=== PATIENT | female | born 1955 | race African-American/Black ===

== ENCOUNTER → 2022-09-14 | Day surgery (SDC) | payer MEDICARE ==
[~2022-09-14] MED LIST: AMLO10TA80 PO; ASPI-1497 PO; ATOR10TA69 PO; CARV3.1242 PO; CINA30 PO; FERR325T30 PO; GLIP10TA10 PO; LIDOCAINE HCL 1% 10 MG/ML 10ML VIAL ONE; METF-873 PO; SODIUM BICARBONATE 4% (2.4MEQ) 5ML VIAL IV ONE; TOPUD PO; VIT1TABL62 PO
== END | disposition home or self-care (01) ==
LOC: RAD 07:56
PROVIDERS: ATTEND Specialist
DX: R92.8 Other abnormal and inconclusive findings on diagnostic imaging of breast (principal); Z79.82 Long term (current) use of aspirin; Z79.84 Long term (current) use of oral hypoglycemic drugs; Z79.899 Other long term (current) drug therapy; Z98.890 Other specified postprocedural states
CPT/HCPCS: 19285; J3490 ×2; Z7610 ×2; A4648

== ENCOUNTER 2022-09-15 07:59 | Day surgery (SDC) | payer MEDICARE ==
[~2022-09-15] VITALS: Ht 170.2 cm; Wt 72.6 kg
[~2022-09-15 07:59] MED LIST changes: -AMLO10TA80 PO; -ASPI-1497 PO; -ATOR10TA69 PO; +BUPIVACAINE HCL/PF 0.5% (5MG/ML) 10ML ONE; -CARV3.1242 PO; -CINA30 PO; -FERR325T30 PO; -GLIP10TA10 PO; -METF-873 PO; +POLYMYXIN B SULFATE 500000 UNITS/VIAL ONE; +SKIN ADHESIVE 0.7 GM EA TOP ONE; -SODIUM BICARBONATE 4% (2.4MEQ) 5ML VIAL IV ONE; -TOPUD PO; -VIT1TABL62 PO
[2022-09-15] MEDS ORDERED: LACTATED RINGERS 1,000 ML IV ONE (08:30)
[2022-09-15] MEDS ORDERED: PROPOFOL 200MG/20ML VIAL IV ONE (08:43)
[2022-09-15] MEDS ORDERED: FENTANYL CITRATE/PF 50MCG/ML 2ML VIAL ONE ×2 (08:43→10:35)
[2022-09-15] MEDS ORDERED: DEXAMETHASONE 4MG/ML 1ML VIAL ONE (08:43)
[2022-09-15] MEDS ORDERED: ONDANSETRON HCL 4MG/2ML INJ ONE (08:43)
[2022-09-15] MEDS ORDERED: KETOROLAC 30MG/ML VIAL ONE (08:43)
[2022-09-15] MEDS ORDERED: MIDAZOLAM HCL 2 MG/2 ML VIAL ONE (08:43)
[2022-09-15] MEDS ORDERED: CARV3.1242 PO (10:00)
[2022-09-15] MEDS ORDERED: METF-873 PO (10:00)
[2022-09-15] MEDS ORDERED: ATOR10TA69 PO (10:00)
[2022-09-15] MEDS ORDERED: GLIP10TA10 PO (10:00)
[2022-09-15] MEDS ORDERED: AMLO10TA80 PO (10:00)
[2022-09-15] MEDS ORDERED: VIT1TABL62 PO (10:00)
[2022-09-15] MEDS ORDERED: CINA30 PO (10:00)
[2022-09-15] MEDS ORDERED: TOPUD PO (10:00)
[2022-09-15] MEDS ORDERED: FERR325T30 PO (10:00)
[2022-09-15] MEDS ORDERED: ASPI-1497 PO (10:00)
[2022-09-15] MEDS ORDERED: EPHEDRINE SULFATE 50MG/ML VIAL ONE (10:25)
[2022-09-15] MEDS ORDERED: MEPERIDINE HCL/PF 25MG/ML CPJ IV PRN (11:00)
[2022-09-15] MEDS ORDERED: HYDROMORPHONE HCL/PF 2MG/ML CPJ IV PRN (11:00)
[2022-09-15] MEDS ORDERED: FENTANYL CITRATE/PF 50MCG/ML 2ML VIAL IV PRN (11:00)
[2022-09-15] MEDS ORDERED: ONDANSETRON HCL 4MG/2ML INJ IV PRN (11:00)
[2022-09-15] MEDS ORDERED: TRAMADOL 50MG TABLET PO PRN (13:30)
[2022-09-15 13:43] VITALS: BP 138/88; PULSE 94; RESP 12
== END 2022-09-15 14:30 | disposition home or self-care (01) ==
LOC: OR 07:59
PROVIDERS: ATTEND Specialist
DX: N63.20 Unspecified lump in the left breast, unspecified quadrant (principal); R92.8 Other abnormal and inconclusive findings on diagnostic imaging of breast; I10 Essential (primary) hypertension; E11.9 Type 2 diabetes mellitus without complications; E78.5 Hyperlipidemia, unspecified; Z79.84 Long term (current) use of oral hypoglycemic drugs; Z79.899 Other long term (current) drug therapy; Z98.890 Other specified postprocedural states
CPT/HCPCS: 19301; 82962; 88307; 76098; 19285; J3010; J3490 ×4; J1100; J1885; J2250; J2405; J2704; A4217; Z7610 ×17

== ENCOUNTER → 2022-11-17 | Day surgery (SDC) | payer MEDICARE ==
[~2022-11-17] VITALS: Ht 170.2 cm; Wt 73.5 kg
[~2022-11-17] MED LIST changes: +AMLO10TA80 PO; +ASPI-1497 PO; +ATOR10TA69 PO; +CARV3.1242 PO; +CARV6.2548 PO; +CINA30 PO; +ERGO1250 PO; +FERR325T30 PO; +GLIP10TA10 PO; -LIDOCAINE HCL 1% 10 MG/ML 10ML VIAL ONE; +LIDOCAINE HCL 1% 20ML VIAL (Pyxis) INJ ONE; +METF-873 PO; +METHYLENE BLUE 50 MG/10 ML AMP IV ONE; -POLYMYXIN B SULFATE 500000 UNITS/VIAL ONE; -SKIN ADHESIVE 0.7 GM EA TOP ONE; +SODIUM CHLORIDE 0.9% 1,000 ML IV SCH; +TOPUD PO; +VIT1TABL62 PO
== END | disposition home or self-care (01) ==
LOC: OR 06:27
PROVIDERS: ATTEND Specialist
DX: C50.912 Malignant neoplasm of unspecified site of left female breast (principal); R59.0 Localized enlarged lymph nodes; I11.9 Hypertensive heart disease without heart failure; E11.9 Type 2 diabetes mellitus without complications; Z79.82 Long term (current) use of aspirin; Z79.84 Long term (current) use of oral hypoglycemic drugs; Z79.899 Other long term (current) drug therapy; Z98.890 Other specified postprocedural states
CPT/HCPCS: 36561; 82962; 88307; 77001; 71045; 38525; J3490 ×2; Q9968; Z7610 ×11; 76000